=== PATIENT | male | born 1990 | race African-American/Black ===

== ENCOUNTER 2020-05-07 20:42 | Inpatient (IN) | payer OTHER ==
[~2020-05-07] VITALS: Ht 172.7 cm; Wt 81.6 kg
[2020-05-07] MEDS ORDERED: DIAZEPAM 5 MG TABLET PO SCH (21:15)
[2020-05-07] MEDS ORDERED: ACETAMINOPHEN 325MG TABLET PO ONE (21:30)
[2020-05-07 22:03] LABS: BASOPHILS % 0.5 % (0.0-2.0); EOSINOPHILS % 1.4 % (0.0-5.0); HEMATOCRIT. 40.6 % (42.0-52.0); HEMOGLOBIN. 13.5 g/dL (14.0-18.0); LYMPHOCYTES % 27.3 % (20.0-50.0); MEAN CORPUSCULAR HEMOGLOBIN 27.4 pg (28.0-32.0); MEAN CORPUSCULAR VOLUME 82.8 fL (80.0-94.0); MEAN PLATELET VOLUME 8.9 fl (7.4-10.4); MONOCYTES % 6.9 % (2.0-8.0); NEUTROPHILS % 63.9 % (40.0-76.0); PLATELET 185 x1000/uL (130-400); RED BLOOD CELL COUNT 4.91 mill/uL (4.7-6.1); RED CELL DISTRIBUTION WIDTH 12.8 % (11.6-14.6)
[2020-05-07 22:07] LABS: CHLORIDE 102 mEq/L (98-107)
[2020-05-08] MEDS ORDERED: POTASSIUM CHLORIDE 20MEQ TABLET SR PO ONE
[2020-05-08] MEDS ORDERED: ASPIRIN 325MG TABLET PO ONE (00:15)
[2020-05-08] MEDS ORDERED: ENOXAPARIN 80MG/0.8ML SYR SUBCUT ONE (00:45)
[2020-05-08] MEDS: MAGNESIUM OXIDE 400MG TABLET PO SCH ×2 (01:16→09:28)
[2020-05-08 12:52] LABS: BASOPHILS % 0.8 % (0.0-2.0); EOSINOPHILS % 2.8 % (0.0-5.0); HEMATOCRIT. 41.7 % (42.0-52.0); LYMPHOCYTES % 42.7 % (20.0-50.0); MEAN CORPUSCULAR HEMOGLOBIN 27.9 pg (28.0-32.0); MEAN CORPUSCULAR VOLUME 83.4 fL (80.0-94.0); MONOCYTES % 9.9 % (2.0-8.0); NEUTROPHILS % 43.8 % (40.0-76.0); PLATELET 185 x1000/uL (130-400); RED BLOOD CELL COUNT 5.01 mill/uL (4.7-6.1); RED CELL DISTRIBUTION WIDTH 12.5 % (11.6-14.6)
[2020-05-08 12:58] LABS: CHLORIDE 107 mEq/L (98-107)
[2020-05-08] MEDS ORDERED: ONDANSETRON HCL 4MG/2ML INJ IV PRN (17:45)
[2020-05-08] MEDS ORDERED: ACETAMINOPHEN 325MG TABLET PO PRN (17:45)
[2020-05-08 22:55] LABS: *AMPHETAMINES SCREEN URINE NEGATIVE (NEGATIVE); *BARBITURATES SCREEN URINE NEGATIVE (NEGATIVE); *BENZODIAZEPINES SCREEN URINE PRESUMTIVE POSITIVE (NEGATIVE); METHADONE URINE SCREEN NEGATIVE (NEGATIVE); OPIATES URINE SCREEN NEGATIVE (NEGATIVE)
[2020-05-08 22:56] LABS: *COCAINE SCREEN URINE NEGATIVE (NEGATIVE); CANNABINOID URINE SCREEN NEGATIVE (NEGATIVE); PHENCYCLIDINE URINE SCREEN NEGATIVE (NEGATIVE)
[2020-05-09] MEDS: MAGNESIUM OXIDE 400MG TABLET PO SCH (09:32)
[2020-05-09 10:09] VITALS: BP 104/69
[2020-05-09 12:10] VITALS: BP 121/69
[2020-05-09 16:05] VITALS: BP 106/68
[2020-05-09 20:00] VITALS: BP 105/64
[2020-05-10] VITALS: BP 93/54
[2020-05-10 08:00] VITALS: BP 104/58
[2020-05-10] MEDS: MAGNESIUM OXIDE 400MG TABLET PO SCH (09:09)
[2020-05-10 12:00] VITALS: BP 113/63
[2020-05-10] MEDS: CARVEDILOL 3.125 MG TABLET PO SCH ×2 (14:56→21:00)
[2020-05-10 16:00] VITALS: BP 102/62
[2020-05-10 20:00] VITALS: BP 105/60
[2020-05-11] VITALS: BP 116/69
[2020-05-11 04:00] VITALS: BP 110/60
[2020-05-11 06:48] LABS: CHLORIDE 105 mEq/L (98-107)
[2020-05-11 06:49] LABS: BASOPHILS % 0.9 % (0.0-2.0); EOSINOPHILS % 4.4 % (0.0-5.0); HEMATOCRIT. 41.5 % (42.0-52.0); HEMOGLOBIN. 13.9 g/dL (14.0-18.0); LYMPHOCYTES % 45.4 % (20.0-50.0); MEAN CORPUSCULAR HEMOGLOBIN 28.3 pg (28.0-32.0); MEAN CORPUSCULAR VOLUME 84.8 fL (80.0-94.0); MEAN PLATELET VOLUME 9.3 fl (7.4-10.4); MONOCYTES % 9.1 % (2.0-8.0); NEUTROPHILS % 40.2 % (40.0-76.0); PLATELET 188 x1000/uL (130-400); RED BLOOD CELL COUNT 4.89 mill/uL (4.7-6.1); RED CELL DISTRIBUTION WIDTH 12.8 % (11.6-14.6)
[2020-05-11 08:00] VITALS: BP 106/70
[2020-05-11] MEDS: MAGNESIUM OXIDE 400MG TABLET PO SCH (08:16)
[2020-05-11] MEDS: CARVEDILOL 3.125 MG TABLET PO SCH (08:33)
[2020-05-11] MEDS ORDERED: MAGN400C MT (15:52)
[2020-05-11] MEDS ORDERED: COR3 PO (15:52)
[2020-05-11 16:00] VITALS: BP 113/85
[2020-05-11 17:55] VITALS: BP 113/85
== END 2020-05-11 19:01 | disposition home or self-care (01) | DRG 313 ==
LOC: ER 20:42 → 6WST 05-08 01:36 → ENRESERV 05-09 09:05
PROVIDERS: ADMIT Internal Medicine; ATTEND Internal Medicine
DX: R07.9 Chest pain, unspecified (principal); I50.22 Chronic systolic (congestive) heart failure; I42.0 Dilated cardiomyopathy; E87.6 Hypokalemia; E66.01 Morbid (severe) obesity due to excess calories; D64.9 Anemia, unspecified; F41.9 Anxiety disorder, unspecified; I34.0 Nonrheumatic mitral (valve) insufficiency; Z20.822 Contact with and (suspected) exposure to COVID-19; I11.0 Hypertensive heart disease with heart failure; Z68.27 Body mass index [BMI] 27.0-27.9, adult
CPT/HCPCS: 36415; 71045; 80048; 80053; 84484; 85025; 93005; 93306; 99285; J1650